=== PATIENT | female | born 2000 | race African-American/Black ===

== ENCOUNTER 2020-05-22 21:56 | Emergency (ER) | payer MEDICAID ==
[~2020-05-22] VITALS: Ht 170.2 cm; Wt 113.6 kg
--- NOTE | 2020-05-23 00:47 | PHYS DOC ---
Past Medical History Past Medical History: Other Additional Past Medical Histor: SYNCOPAL EPISODES Past Surgical History: No Surgical History Smoking Status: Never Smoker Alcohol Use: None General Adult EDM: Chief Complaint: NEAR SYNCOPE HPI: HPI: 20-year-old female past medical history significant for iron deficiency anemia, asthma and seasonal allergies, presents to the ED with complaints of near syncopal event while at work. Patient states she started her new job and is an production administrative assistant at the [employer]. States she had a sudden onset nausea, hot flashes, felt as if he was going to faint, room went dark, she turned flushed and thought she may collapse. Patient states she went out to sit in her car, cranked the AC and then got really cold. States she just moved here from [place] to live with her boyfriend. Takes no routine medications. Has had these symptoms in the past and was told she was low on iron. Denies any alcohol or drug use today. States her father in his 40s from diabetes and certificate mentioned "heart resistant to insulin." No known family history of hypercoagulable states, connective tissue disorders, aortic disease including dissection or aneurysm, cardiac arrhythmias or CAD. Patient states she missed her January appointment in [place] for depo provera, lmp was in January. Is sexually active, occasionally uses protection. Pt did not lose consciousness or collapse but states she has in the past. Review of Systems: Review of Systems: Constitutional: Denies fever or chills. [] Eyes: Denies change in visual acuity. [] HENT: Denies nasal congestion or sore throat. [] Respiratory: Denies cough or shortness of breath. [] Cardiovascular: Denies chest pain or edema. [] GI: Denies abdominal pain, bloody stools or diarrhea. [] : Denies dysuria. [] Or hematuria or flank pain Musculoskeletal: Denies back pain or joint pain. [] Integument: Denies rash. [] Neurologic: Denies headache, focal weakness or sensory changes. [] No neck stiffness Endocrine: Denies polyuria or polydipsia. [] Lymphatic: Denies swollen glands. [] Psychiatric: Denies depression or anxiety. [] Heart Score: Risk Factors: Risk Factors: DM, Current or recent (<one month) smoker, HTN, HLP, family history of CAD, obesity. Risk Scores: Score 0 - 3: 2.5% MACE over next 6 weeks - Discharge Home Score 4 - 6: 20.3% MACE over next 6 weeks - Admit for Clinical Observation Score 7 - 10: 72.7% MACE over next 6 weeks - Early Invasive Strategies Allergies: Allergies: Allergies Coded Allergies Type Severity Reaction Last Updated Verified No Known Drug Allergies 05/22/20 No Physical Exam: PE: Constitutional: Well developed, well nourished, no acute distress, non-toxic appearance. [] HENT: Normocephalic, atraumatic, bilateral external ears normal, oropharynx moist, no oral exudates, nose normal. [] Eyes: EOMI, conjunctiva normal, no discharge. [] Neck: Normal range of motion, supple, no stridor. [] Cardiovascular: Tachycardic, no murmur [] Lungs & Thorax: Bilateral breath sounds clear to auscultation [] Abdomen: Bowel sounds normal, soft, no tenderness, no masses, no pulsatile mass es. [] Skin: Warm, dry, no erythema, no rash. [] Back: No tenderness, no CVA tenderness. [] Extremities: No tenderness, no cyanosis, no clubbing, ROM intact, no edema. [] Neurologic: Alert and oriented X 3, normal motor function, normal sensory function, no focal deficits noted. [] Psychologic: Affect normal, judgement normal, mood normal. [] Current Patient Data: Labs: Laboratory Tests Test 05/23/20 00:24 POC Urine HCG, Qualitative Hcg negative (Negative) Vital Signs: Vital Signs Date Time Temp Pulse Resp B/P (MAP) Pulse Ox O2 Delivery O2 Flow Rate FiO2 05/22/20 22:28 97.9 132 20 152/90 (110) 99 Room Air 97.9 EKG: EKG: Sinus tachycardia at 121 bpm, no axis deviation, QTC 514, no T wave inversions, no ST elevations or ST depressions, no delta wave sinus tachcardia at 104 bpm, NAD, normal intervals (QTc 445), no TWI/KLARISSA/STD Radiology/Procedures: Radiology/Procedures: IMAGING REPORT Signed PATIENT: ELLIOT KEENE ACCOUNT: [id number] : 2000 LOCATION: ER AGE: 20 SEX: F EXAM STATUS: REG ER ORD. PHYSICIAN: JENNA UGARTE DO REASON: near syncope PROCEDURE: CHEST PA & LATERAL PA and lateral chest x-rays HISTORY: Syncope. FINDINGS: Heart size normal. Mediastinal silhouette is normal. No pneumothorax, pulmonary opacities or pleural effusions. Bones are unremarkable. IMPRESSION: No acute process. Electronically signed by: Willam Sevilla MD (05/23/2020 4:12 AM) [facility] DICTATED and SIGNED BY: WILLAM SEVILLA MD DATE: 05/23/20 0412 Course & Med Decision Making: Course & Med Decision Making Pertinent Labs and Imaging studies reviewed. (See chart for details) Concern for normocytic anemia and a UTI in a near syncopal patient. Pt is low risk for serious outcome per [place] syncope rule. Patient tachycardic on arrival with leukocytosis, is afebrile and well-appearing (HR improved to 103). Meets sirs criteria but is smiling in no distress. Has no UTI symptoms, nausea, vomiting, flank pain or fever. Given white count and heart rate, and UTI, will prescribed antibiotics x14 days (to cover pyelonephritis) with strict ED return precautions given for pyelonephritis versus sepsis instructions (patient educated on the symptoms). Encouraged urgent outpatient follow-up with PMD in 24 to 48 hours. Life-threatening processes were considered but are low suspicion at this time, given history and physical exam. Pt was educated on all prescription medications and adverse effects. All patient's questions were answered and pt was stable at time of discharge. Life/limb-threatening differential includes but is not limited to, abdominal aortic aneurysm, aortic dissection, acute coronary syndrome, anemia, valvular disorder, cerebrovascular accident, drug overdose or toxidrome, arrhythmia, prolonged QT syndrome, hemorrhage, heat illness, intracranial hemorrhage, infection including meningitis/encephalitis/sepsis/toxic shock/myocarditis, vertebrobasilar insufficiency, seizure, medication adverse event, illicit drug use, electrolyte disorder I spoken with the patient and her caregivers. I explained the patient's condition, diagnoses and treatment plan based on the information available to me at this time. I have answered the patient and her caregiver's questions and addressed any concerns. The patient and her caregivers have a good understanding of patient's diagnosis, condition and treatment plan as can be expected at this point. Vital signs have been stable. Patient's condition is stable and appropriate for discharge from the emergency department. Patient will pursue further outpatient evaluation with primary care physician or other designated or consulting physician as outlined in the discharge instructions. The patient and/or caregivers are agreeable to this plan of care and follow-up instructions have been explained in detail. The patient and/or ca regivers have received these instructions in written form and have expressed an understanding of the discharge instructions. The patient and/or caregivers are aware that any significant change of condition or worsening of symptoms should prompt immediate return to this or the closest emergency department or call to [facility] Disclaimer: [employer] Disclaimer: This electronic medical record was generated, in whole or in part, using a voice recognition dictation system. Departure Departure Impression: Primary Impression: UTI (urinary tract infection) Additional Impressions: Near syncope Normocytic anemia Disposition: 01 DC HOME SELF CARE/HOMELESS Condition: STABLE Referrals: NO PCP (PCP) FOLLOW UP WITH FAMILY MEDICINE: Family Medicine Address: [address] [place] [address] Patient Instructions: Anemia, FAQs, Near-Syncope, Urinary Tract Infection Additional Instructions: EMERGENCY DEPARTMENT GENERAL DISCHARGE INSTRUCTIONS Thank you for coming to [facility] Emergency Department (ED) today and trusting us with you care. We trust that you had a positive experience in our Emergency Department. If you wish to speak to the department management, you may call the Director at [phone]. YOUR FOLLOW UP INSTRUCTIONS ARE FOLLOWS: 1. Do you have a private Doctor? If you do not have a private doctor, please ask for a resource list of physicians or clinics that may be able to assist you with follow up care. 2. The Emergency Physicain has interpreted your x-rays. The X-Ray specialist will also review them. If there is a change in the findings, you will be notified in 48 hours when at all possible. 3. A lab test or culture has been done, your results will be reviewed and you will be notified if you need a change in treatment. ADDITIONAL INSTRUCTIONS AND INFORMATION: 1. Your care today has been supervised by a physician who is specially trained in emergency care. Many problems require more than one evaluation for a complete diagnosis and treatment. We recommend that you schedule your follow up appointment as recommended to ensure complete treatment of you illness or injury. If you are unable to obtain follow up care and continue to have a problem, or if your condition worsens, we recommend that you return to the ED. 2. We are not able to safely determine your condition over the phone nor are we able to give sound medical advice over the phone. For these safety reasons, if you call for medical advice we will ask you to come to the ED for further evaluation. 3. If you have any questions regarding these discharge instructions please call the ED at [phone]. SAFETY INFORMATION: In the interest of safety, wellness, and injury prevention; we encourage you to wear your sealbelt, if you smoke; quite smoking, and we encourage family to use a protective helmet for bicycling and other sporting events that present an increased risk for head injury. IF YOUR SYMPTOMS WORSEN OR NEW SYMPTOMS DEVELOP, OR YOU HAVE CONCERNS ABOUT YOUR CONDITION; OR IF YOUR CONDITION WORSENS WHILE YOU ARE WAITING FOR YOUR FOLLOW UP APPOINTMENT; EITHER CONTACT YOUR PRIMARY CARE DOCTOR, THE PHYSICIAN WHOSE NAME AND NUMBER YOU WERE GIVEN, OR RETURN TO THE ED IMMEDIATELY. Scripts Cephalexin (KEFLEX) 500 Mg Capsule 2 CAP PO Q12HR for 10 Days, #40 CAP Prov: JENNA UGARTE DO 05/23/20 JENNA UGARTE DO May 23, 2020 00:47
[2020-05-23 01:40] LABS: BASO # 0.1 x10^3/uL (0.0-0.2); BASO % 0 % (0-3); EOS % 5 % (0-3); HEMATOCRIT 32.7 % (36.0-47.0); HEMOGLOBIN 10.3 g/dL (12.0-15.5); LYMPH # 2.7 x10^3/uL (1.0-4.8); LYMPH % 14 % (24-48); MEAN CORPUSCULAR HEMOGLOBIN 21 pg (25-35); MEAN CORPUSCULAR HGB CONC 31 g/dL (31-37); MEAN CORPUSCULAR VOLUME 68 fL (79-100); MONO # 0.8 x10^3/uL (0.0-1.1); MONO % 4 % (0-9); NEUT # 14.4 x10^3/uL (1.8-7.7); NEUT % 76 % (31-73); PLATELET COUNT 395 x10^3/uL (140-400); RED BLOOD COUNT 4.79 x10^6/uL (3.50-5.40); RED CELL DISTRIBUTION WIDTH 16.8 % (11.5-14.5); WHITE BLOOD COUNT 18.9 x10^3/uL (4.0-11.0)
[2020-05-23 02:43] LABS: ALBUMIN 4.3 g/dL (3.4-5.0); ALBUMIN/GLOBULIN RATIO 1.2 (1.0-1.7); CALCIUM 9.7 mg/dL (8.5-10.1); CREATININE 0.8 mg/dL (0.6-1.0); GFR 110.7; MAGNESIUM 2.2 mg/dL (1.8-2.4); PHOSPHORUS 4.7 mg/dL (2.6-4.7); TOTAL BILIRUBIN 0.2 mg/dL (0.2-1.0)
[2020-05-23 03:26] LABS: POTASSIUM 4.2 mmol/L (3.5-5.1)
--- NOTE | 2020-05-23 04:15 | RAD ---
PA and lateral chest x-rays HISTORY: Syncope. FINDINGS: Heart size normal. Mediastinal silhouette is normal. No pneumothorax, pulmonary opacities or pleural effusions. Bones are unremarkable. IMPRESSION: No acute process. Electronically signed by: Aniceto Castro MD (05/23/2020 4:12 AM) [facility]
[2020-05-23 05:11] LABS: BILIRUBIN,URINE NEGATIVE (NEG); CLARITY,URINE CLEAR; COLOR,URINE YELLOW; NITRITE,URINE NEGATIVE (NEG); PH,URINE 5.5 (<5.0-8.0); PROTEIN,URINE NEGATIVE (NEG-TRACE); UROBILINOGEN,URINE 0.2 mg/dL (0.2 mg/dL)
[2020-05-23 05:43] LABS: BACTERIA,URINE MODERATE /HPF (0-FEW)
[2020-05-23 06:00] LABS: % EOS 9 % (0-5); % LYMPHS 12 % (24-48); % MONOS 5 % (0-10); % SEGS 74 % (35-66)
[2020-05-23 06:01] LABS: MICROCYTOSIS SLIGHT; PLT ESTIMATE ADEQUATE (ADEQUATE)
[2020-05-23] MEDS ORDERED: CEPH-264 PO (06:27)
[2020-05-23 06:45] VITALS: BP 138/78
--- NOTE | 2020-05-24 11:14 | EKG ---
[facility] [address] [place] [address] Test Date: 2020-05-23 Test Time: 01:12:38 Pat Name: ELLIOT KEENE Department: Room: Gender: F Per Diem: : 2000 Requested By: JENNA UGARTE Order Number: [id number] Reading MD: Measurements Intervals [place] Rate: 104 P: 12 MS: 138 QRS: 56 QRSD: 88 T: 30 QT: 338 QTc: 445 Interpretive Statements SINUS TACHYCARDIA OTHERWISE NORMAL ECG RI6.02 No previous ECG available for comparison
== END 2020-05-23 07:08 | disposition home or self-care (01) ==
LOC: ER 21:56
DX: N39.0 Urinary tract infection, site not specified (principal); D64.9 Anemia, unspecified; R55 Syncope and collapse; R11.0 Nausea; N95.1 Menopausal and female climacteric states
CPT/HCPCS: 36415; 71046; 80053; 81001; 81025; 83735; 84100; 84484; 85007; 85025; 85379; 87086; 93005; 99285